=== PATIENT | male | born 1990 | race Caucasian/White ===

== ENCOUNTER 2016-06-01 16:39 | Emergency (ER) | payer SELFPAY ==
[2016-06-01 17:11] VITALS: BP 125/70
--- NOTE | 2016-06-01 17:48 | UC ---
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 pain is in deltoid and shoots back into scalpula pain is only elicited with movements not taking any medications for pain - History of Current Complaint Chief Complaint: UCUpperExtremity Stated Complaint: SHOULDER INJURY Time Seen by Provider: 06/01/16 17:42 Hx Obtained From: Patient Timing: Minutes Character: Aching Aggravating Factor(s): Lifting Alleviating Factor(s): Rest - Allergies/Home Medications Allergies/Adverse Reactions: Allergies Allergy/AdvReac Type Severity Reaction Status Date / Time No Known Allergies Allergy Verified 06/01/16 17:11 Home Medications: Home Medications NK [No Home Medications Reported] 06/01/16 [History Confirmed 06/01/16] PMH/Surg Hx/FS Hx/Imm Hx Previously Healthy: Yes Endocrine History Of: Denies: Diabetes, Thyroid Disease Cardiovascular History Of: Reports: Cardiac Disorders - HEART MURMUR Denies: Hypertension Respiratory History Of: Denies: COPD, Asthma GI/ History Of: Denies: Ulcer Psychological History Of: Reports: Anxiety - hx of cutting - Surgical History Surgical History: Yes Surgery Procedure, Year, and Place: right wrist - Family History Known Family History: Positive: Hypertension Negative: Cardiac Disease, Diabetes - Social History Occupation: Employed Full-time Lives: With Family Alcohol Use: Occasionally Substance Use Type: Marijuana Smoking Status (MU): Never Smoked Tobacco Have You Smoked in the Last Year: No Review of Systems Constitutional: Negative Skin: Negative Eyes: Negative ENT: Negative Respiratory: Negative Cardiovascular: Negative Gastrointestinal: Negative Genitourinary: Negative Motor: Negative Neurovascular: Negative Musculoskeletal: Other: - rioght shoulder pain Neurological: Negative Psychological: Negative All Other Systems Reviewed And Are Negative: Yes Physical Exam Triage Information Reviewed: Yes Appearance: No Pain Distress, Well-Nourished Vital Signs: Initial Vital Signs Temp 97.6 F 06/01/16 17:07 Pulse 50 06/01/16 17:07 Resp 12 06/01/16 17:07 BP 125/70 06/01/16 17:07 Pulse Ox 100 06/01/16 17:07 Vital Signs Reviewed: Yes Eyes: Positive: Conjunctiva Clear ENT: Positive: Normal ENT inspection Neck: Positive: No Lymphadenopathy Respiratory: Positive: Lungs clear, Normal breath sounds, No respiratory distress, No accessory muscle use Cardiovascular: Positive: RRR, No Murmur, Pulses Normal Musculoskeletal: Negative: Other: - RUE- shoulder full ROM of arm- pain elicitied in shoulder at 90 degrees no tenderness elicited from palpation of structures/musculature of shoulder negative for inpingment Neurological: Positive: Alert Psychological Exam: Normal Skin Exam: Normal Shoulder Course/Dx - Differential Dx/Diagnosis Differential Diagnosis/HQI/PQRI: Rotator Cuff Injury, Sprain, Strain Provider Diagnoses: right shoulder pain Discharge - Discharge Plan Condition: Stable Disposition: HOME Patient Education Materials: Rotator Cuff Injury (ED), Shoulder Sprain (ED), RICE Therapy (ED) Referrals: No Primary Care Phys,NOPCP [Primary Care Provider] - [facility] [place] [facility] [Outside] Additional Instructions: Please call physical therapy for further evaluation and treatment. Take ibuprofen for pain and to reduce inflammation rest your shoulder apply ice twice a day Increase fluids and rest. Please review your discharge instructions. If your symptoms do not improve please call your primary care provider or return to urgent care.
== END 2016-06-01 18:20 | disposition home or self-care (01) ==
LOC: UCEAST 16:39
DX: M25.511 Pain in right shoulder (principal); F12.90 Cannabis use, unspecified, uncomplicated
CPT/HCPCS: 99211; G0463

== ENCOUNTER 2016-08-04 07:08 | Emergency (ER) | payer SELFPAY ==
--- NOTE | 2016-08-04 08:03 | RAD ---
HISTORY: Ankle and foot pain, trauma to right ankle and foot COMPARISONS: Right ankle dated August 04, 2016 VIEWS: 3, Frontal, lateral, and oblique views of the right foot FINDINGS: BONE DENSITY: Normal. BONES: Again noted is a nondisplaced fracture of the medial tibia with articular extension JOINTS: There is no arthropathy. ALIGNMENT: There is no dislocation. SOFT TISSUES: Unremarkable. OTHER FINDINGS: None. IMPRESSION: AGAIN NOTED IS A NONDISPLACED FRACTURE OF THE MEDIAL DISTAL TIBIA
--- NOTE | 2016-08-04 08:03 | RAD ---
HISTORY: Right ankle pain, trauma COMPARISONS: None VIEWS: There is, Frontal, lateral, and oblique views of the right ankle FINDINGS: BONE DENSITY: Normal. BONES: There is a longitudinally oriented nondisplaced fracture of the medial distal tibial metaphysis with articular extension JOINTS: There is no arthropathy. ALIGNMENT: There is no dislocation. SOFT TISSUES: There is soft tissue swelling OTHER FINDINGS: None. IMPRESSION: LONGITUDINALLY ORIENTED NONDISPLACED FRACTURE OF THE MEDIAL DISTAL TIBIA WITH ARTICULAR EXTENSION
[2016-08-04] MEDS ORDERED: Ketorolac INJ* 60 MG/2 ML VIAL ONE (08:33)
[2016-08-04] MEDS ORDERED: Ketorolac INJ* 60 MG/2 ML VIAL IM ONE (08:34)
--- NOTE | 2016-08-04 08:44 | ED ---
ciarra Mcneill Timothy, scribed for Rosales Albrecht MD on 08/04/16 at 0732 . Lower Extremity - HPI Summary HPI Summary: Pete Valenzuela III is a 26 yo male presenting to [facility] with 10/10 pain in his right ankle secondary to falling down stairs while intoxicated at 2300 last night. His pain increases with palpation or any movement. His MH includes heart murmur, self-harm, anxiety, substance abuse. - History of Current Complaint Chief Complaint: EDExtremityLower Stated Complaint: RIGHT ANKLE INJURY Time Seen by Provider: 08/04/16 07:23 Hx Obtained From: Patient Mechanism Of Injury: Fall From A Standing Position - down stairs Onset of Pain: Immediate Onset/Duration: Hours Pain Intensity: 10 Pain Scale Used: 0-10 Numeric Location: Is Discrete @ - right ankle Associated Signs And Symptoms: Positive: Swelling, Bruising Aggravating Factor(s): Standing, Ambulation, Movement, Weight Bearing - Allergies/Home Medications Allergies/Adverse Reactions: Allergies Allergy/AdvReac Type Severity Reaction Status Date / Time No Known Allergies Allergy Verified 06/01/16 17:11 PMH/Surg Hx/FS Hx/Imm Hx Endocrine/Hematology History: Denies: Hx Diabetes, Hx Thyroid Disease Cardiovascular History: Denies: Hx Hypertension Respiratory History: Denies: Hx Asthma, Hx Chronic Obstructive Pulmonary Disease (COPD) GI History: Denies: Hx Ulcer Psychiatric History: Reports: Hx Anxiety - hx of cutting, Hx Substance Abuse - Cancer History Cancer Type, Location and Year: anxiety - Surgical History Surgery Procedure, Year, and Place: right wrist Infectious Disease History: No Infectious Disease History: Denies: Hx Clostridium Difficile, Hx Hepatitis, Hx Human Immunodeficiency Virus (HIV), Hx of Known/Suspected MRSA, Hx Shingles, Hx Tuberculosis, Hx Known/ Suspected VRE, Hx Known/Suspected VRSA, History Other Infectious Disease, Traveled Outside the [place] in Last 30 Days - Family History Known Family History: Positive: Hypertension Negative: Cardiac Disease, Diabetes - Social History Alcohol Use: Occasionally Hx Substance Use: Yes Substance Use Type: Reports: Marijuana Smoking Status (MU): Never Smoked Tobacco Have You Smoked in the Last Year: No Review of Systems Constitutional: Negative Eyes: Negative ENT: Negative Cardiovascular: Negative Respiratory: Negative Gastrointestinal: Negative Genitourinary: Negative Musculoskeletal: Other - right ankle pain Positive: Bruising - right ankle Neurological: Negative Psychological: Normal All Other Systems Reviewed And Are Negative: Yes Physical Exam - Summary Physical Exam Summary: VITAL SIGNS: Reviewed. GENERAL: Patient is a well-developed and nourished male who is lying comfortable in the stretcher. Patient is not in any acute respiratory distress. HEAD AND FACE: No signs of trauma. No ecchymosis, hematomas or skull depressions. No sinus tenderness. EYES: PERRLA, EOMI x 2, No injected conjunctiva, no nystagmus. EARS: Hearing grossly intact. Ear canals and tympanic membranes are within normal limits. MOUTH: Oropharynx within normal limits. NECK: Supple, trachea is midline, no adenopathy, no JVD, no carotid bruit, no c- spine tenderness, neck with full ROM. CHEST: Symmetric, no tenderness at palpation LUNGS: Clear to auscultation bilaterally. No wheezing or crackles. CVS: Regular rate and rhythm, S1 and S2 present, no murmurs or gallops appreciated. ABDOMEN: Soft, non-tender. No signs of distention. No rebound no guarding, and no masses palpated. Bowel sounds are normal. EXTREMITIES: FROM in all major joints, no cyanosis or clubbing. In right ankle there is positive edema and ecchymosis with tenderness at the lateral malleolus NEURO: Alert and oriented x 3. No acute neurological deficits. Speech is normal and follows commands. SKIN: Dry and warm Triage Information Reviewed: Yes Vital Signs On Initial Exam: Initial Vitals Temp Pulse Resp BP Pulse Ox 99.2 F 88 16 151/70 97 08/04/16 07:09 08/04/16 07:09 08/04/16 07:09 08/04/16 07:09 08/04/16 07:09 Vital Signs Reviewed: Yes Procedures - Procedure Summary Procedure Summary: Cast was created and applied to RLE. Pt tolerated procedure well. - Splinting Location: RLE - ankle Hand-Made Type: fiberglass Splint: posterior Pre-Proc Neuro Vasc Exam: normal Post-Proc Neuro Vasc Exam: normal Diagnostics - Vital Signs Vital Signs Temp Pulse Resp BP Pulse Ox 08/04/16 07:09 99.2 F 88 16 151/70 97 - Laboratory Lab Statement: Any lab studies that have been ordered have been reviewed, and results considered in the medical decision making process. - Radiology R Ankle XR Xray Interpretation: Positive (See Comments) - IMPRESSION: LONGITUDINALLY ORIENTED NONDISPLACED FRACTURE OF THE MEDIAL DISTAL TIBIA WITH ARTICULAR EXTENSION Radiology Interpretation Completed By: Radiologist R Foot XR Xray Interpretation: Positive (See Comments) - IMPRESSION: AGAIN NOTED IS A NONDISPLACED FRACTURE OF THE MEDIAL DISTAL TIBIA Radiology Interpretation Completed By: Radiologist Re-Evaluation - Re-Evaluation First Eval Re-Evaluation Time: 08:19 Change: Unchanged Comment: Discussed imaging results with Pt and necessity of a cast. Pt is agreeable to the course of Tx. Lower Extremity Course/Dx - Course Assessment/Plan: Pete Valenzuela III is a 26 yo male presenting to [facility] with 10 /10 R ankle pain after falling down the stairs at 2300 last night while intoxicated. Ankle X ray impression: Nondisplaced fracture of the medial distal tibia. Foot x ray impression: Longitudinal Nondisplaced fracture of the medial distal tibia with articular extension. In the ED course he was given Toradol for the pain. Reports feeling better. I place a posterior fibreglass splint. After splint patient is neurovascularly intact. He will be given Crutches for a non weight bearing status. He will f/u with orthopedics. I discussed all the findings and test results with the patient. Patient was instructed to return to the emergency room immediately if any of the symptoms return or worsens. Plan of care was discussed with the patient and understands and agrees. All questions were answered at patient satisfaction. There were no further complaints or concerns. Lung exam before discharge: CTA B/L. Good air exchange. No wheezing or crackles heard. CVS: S1 and S2 present. No murmurs appreciated. Patient is alert and oriented x 3. Patient is hemodynamically stable. Patient will be discharged home with follow up PCP in the next 2-3 days - Diagnoses Differential Diagnosis/HQI/PQRI: Positive: Fracture (Closed), Sprain, Strain Provider Diagnoses: Nondisplaced fracture of right tibia Discharge - Discharge Plan Condition: Stable Disposition: HOME Patient Education Materials: Leg Fracture (ED), Cast Care (ED) Referrals: [facility] [place] [facility] [Outside] - 2 Days Emily Faulkner MD [Medical Doctor] - 2 Days Additional Instructions: Please follow up with the primary care physician and the orthopedist provided regarding your visit to the emergency department today. Return to the emergency department with any new or recurring symptoms. The documentation as recorded by the ciarra armendariz Timothy accurately reflects the service I personally performed and the decisions made by me, Rosales Albrecht MD.
[2016-08-04 08:55] VITALS: BP 131/80
== END 2016-08-04 08:54 | disposition home or self-care (01) ==
LOC: ED 07:08
DX: S82.201A Unspecified fracture of shaft of right tibia, initial encounter for closed fracture (principal); W10.9XXA Fall (on) (from) unspecified stairs and steps, initial encounter; Y92.9 Unspecified place or not applicable
CPT/HCPCS: 99282; J1885

== ENCOUNTER 2016-10-22 19:22 | Emergency (ER) | payer OTHER ==
[2016-10-22 19:33] VITALS: BP 130/72
[2016-10-22] MEDS ORDERED: Amoxicillin/Clavulanate TAB* 875 MG PO ONE ×2 (19:56→19:57)
--- NOTE | 2016-10-22 20:08 | UC ---
Lauryn Mcneill Alfonso, scribed for Nirmal Proctor MD on 10/22/16 at 1952 . Dental HPI - HPI Summary HPI Summary: This patient is a 26 year old M presenting to [facility] with a chief complaint of lower right gum swelling since 3 days ago. He states it is swollen and it feels like something is in there. The patient rates the throbbing pain 10/10 in severity. Symptoms aggravated and alleviated by nothing. Patient denies fever , ear pain, face swelling, and neck swelling. He recently broke his tibia and has crutches. - History of Current Complaint Chief Complaint: UCDentalProblem Stated Complaint: DENTAL (GUM) ISSUE Time Seen by Provider: 10/22/16 19:43 Hx Obtained From: Patient Onset/Duration: Sudden Onset, Lasting Days - 3, Still Present Severity: Moderate Pain Intensity: 10 Pain Scale Used: 0-10 Numeric Aggravating: Nothing Alleviating: Nothing Related History: Swelling - Allergies/Home Medications Allergies/Adverse Reactions: Allergies Allergy/AdvReac Type Severity Reaction Status Date / Time No Known Allergies Allergy Verified 06/01/16 17:11 PMH/Surg Hx/FS Hx/Imm Hx Other Respiratory History: No Asthma. - Surgical History Surgical History: Yes Surgery Procedure, Year, and Place: right wrist - Family History Known Family History: Positive: Hypertension Negative: Cardiac Disease, Diabetes - Social History Alcohol Use: None Substance Use Type: None Smoking Status (MU): Never Smoked Tobacco Have You Smoked in the Last Year: No Review of Systems Constitutional: Other - Negative fever ENT: Other - Positive right gum swelling; negative ear pain, face swelling, and neck swelling. All Other Systems Reviewed And Are Negative: Yes Physical Exam Triage Information Reviewed: Yes Vital Signs: Initial Vital Signs Temp 98.4 F 10/22/16 19:30 Pulse 69 10/22/16 19:30 Resp 18 10/22/16 19:30 BP 130/72 10/22/16 19:30 Pulse Ox 100 10/22/16 19:30 Vital Signs Reviewed: Yes - Additional Comments The patient is well-nourished in no acute distress and in no acute pain. The skin is warm and dry and skin color reflects adequate perfusion. HEENT: The head is normocephalic and atraumatic. The pupils are equal and reactive. The conjunctivae are clear and without drainage. Nares are patent and without drainage. Mouth reveals moist mucous membranes and the throat is without erythema and exudate. The external ears are intact. The ear canals are patent and without drainage. The tympanic membranes are intact. Dental : Tender to percussion of the gum line. Behind tooth 32 is excess gum tissue. Area of erythematous gums looking like gingivitis. Neck is supple with full range of motion and non-tender. There are no carotid bruits. There is no neck vein distension. Respiratory: Chest is non-tender. Lungs are clear to auscultation and breath sounds are symmetrical and equal. Cardiovascular: Heart is regular rate and rhythm. There is no murmur or rub auscultated. There is no peripheral edema and pulses are symmetrical and equal. Abdomen: The abdomen is soft and non-tender. There are normal bowel sounds heard in all four quadrants and there is no organomegaly palpated. Musculoskeletal: There is no back pain noted. Extremities are non-tender with full range of motion. There is good capillary refill. There is no peripheral edema or calf tenderness elicited. Neurological: Patient is alert and oriented to person, place and time. The patient has symmetrical motor strength in all four extremities. Cranial nerves are grossly intact. Psychiatric: The patient has an appropriate affect and does not exhibit any anxiety or depression. Dental Complaint Course/Dx - Course Course Of Treatment: This patient is a 26 year old M presenting to [facility] with a chief complaint of lower right gum swelling since 3 days ago. He states it is swollen and it feels like something is in there. The patient rates the throbbing pain 10/10 in severity. Symptoms aggravated and alleviated by nothing. Patient denies fever, ear pain, face swelling, and neck swelling. He recently broke his tibia and has crutches. Patient will be discharged with prescription for Augmentin and follow up from PCP and dentist. The patient is agreeable with this plan. - Differential Dx/Diagnosis Differential Diagnosis/Dx: Dental Abscess, Gingivitis Provider Diagnoses: Gingivitis Discharge - Discharge Plan Condition: Stable Disposition: HOME Prescriptions: Amoxicillin/Clavulanate TAB* [Augmentin TAB 875*] 875 mg PO BID #12 tab Patient Education Materials: Gingivitis (ED) Referrals: Fadi Blair MD [Primary Care Provider] - 3 Days Additional Instructions: FOLLOW UP WITH A DENTIST IF YOUR SYMPTOMS DO NOT IMPROVE OR BECOME WORSE. The documentation as recorded by the Lauryn armendariz Alfonso accurately reflects the service I personally performed and the decisions made by me, Nirmal Proctor MD.
== END 2016-10-22 20:17 | disposition home or self-care (01) ==
LOC: UCEAST 19:22
DX: K05.10 Chronic gingivitis, plaque induced (principal)
CPT/HCPCS: 99212; A9270-GY; G0463

== ENCOUNTER 2016-10-23 02:12 | Emergency (ER) | payer OTHER ==
--- NOTE | 2016-10-23 02:59 | ED ---
IHéctor,nAne, scribed for Pito Johnson MD on 10/23/16 at 0259 . Lower Extremity - HPI Summary HPI Summary: This 26 y/o male presents to ED for recurrent RLE leg pain tonight. PMHx is significant for RLE fracture s/p cast 6-7 days ago. He fell from standing position while ambulating with crutches, and decided to visit ED again when he became concerned about possible re-fracture of his RLE leg. He is able to tolerate ambulation with crutches, and seen ambulating to ED room. Other PMHx includes heart murmur. Pt is currently employed at [employer]. - History of Current Complaint Chief Complaint: EDExtremityLower Stated Complaint: FELL ON BROKEN RT LEG Time Seen by Provider: 10/23/16 02:29 Hx Obtained From: Patient Mechanism Of Injury: Fall From A Standing Position Onset of Pain: Immediate Pain Intensity: 5 Pain Scale Used: 0-10 Numeric Location: Is Discrete @ - RLE leg Character Of Pain: Dull Associated Signs And Symptoms: Positive: Negative Aggravating Factor(s): Standing, Ambulation Alleviating Factor(s): Rest - Allergies/Home Medications Allergies/Adverse Reactions: Allergies Allergy/AdvReac Type Severity Reaction Status Date / Time No Known Allergies Allergy Verified 10/23/16 02:14 PMH/Surg Hx/FS Hx/Imm Hx Endocrine/Hematology History: Denies: Hx Diabetes, Hx Thyroid Disease Cardiovascular History: Denies: Hx Hypertension Respiratory History: Denies: Hx Asthma, Hx Chronic Obstructive Pulmonary Disease (COPD) GI History: Denies: Hx Ulcer Psychiatric History: Reports: Hx Anxiety - hx of cutting, Hx Substance Abuse - Cancer History Cancer Type, Location and Year: anxiety - Surgical History Surgery Procedure, Year, and Place: right wrist Infectious Disease History: No Infectious Disease History: Denies: Hx Clostridium Difficile, Hx Hepatitis, Hx Human Immunodeficiency Virus (HIV), Hx of Known/Suspected MRSA, Hx Shingles, Hx Tuberculosis, Hx Known/ Suspected VRE, Hx Known/Suspected VRSA, History Other Infectious Disease, Traveled Outside the [place] in Last 30 Days - Family History Known Family History: Positive: Hypertension Negative: Cardiac Disease, Diabetes - Social History Alcohol Use: Weekly Hx Substance Use: Yes Substance Use Type: Reports: None Smoking Status (MU): Never Smoked Tobacco Have You Smoked in the Last Year: No Review of Systems Negative: Fever Positive: Other - RLE pain, currently casted All Other Systems Reviewed And Are Negative: Yes Physical Exam Triage Information Reviewed: Yes Vital Signs On Initial Exam: Initial Vitals Temp Pulse Resp BP Pulse Ox 98.2 F 107 18 134/82 95 10/23/16 02:16 10/23/16 02:16 10/23/16 02:16 10/23/16 02:16 10/23/16 02:16 Vital Signs Reviewed: Yes Appearance: Positive: Well-Appearing, No Pain Distress Skin: Positive: Warm Head/Face: Positive: Normal Head/Face Inspection Eyes: Positive: KASIA ENT: Positive: Hearing grossly normal Neck: Positive: Supple Respiratory/Lung Sounds: Positive: Breath Sounds Present Cardiovascular: Positive: RRR Abdomen Description: Positive: Nontender, Soft Bowel Sounds: Positive: Present Musculoskeletal: Positive: Strength/ROM Intact Neurological: Positive: Alert, Oriented to Person Place, Time Psychiatric: Positive: Affect/Mood Appropriate Diagnostics - Vital Signs Vital Signs Temp Pulse Resp BP Pulse Ox 10/23/16 02:16 98.2 F 107 18 134/82 95 - Laboratory Lab Statement: Any lab studies that have been ordered have been reviewed, and results considered in the medical decision making process. - Radiology RLE leg Xray Interpretation: No Acute Changes Radiology Interpretation Completed By: ED Physician Re-Evaluation - Re-Evaluation First Eval Change: Improved Lower Extremity Course/Dx - Diagnoses Provider Diagnoses: Right leg pain Discharge - Discharge Plan Condition: Stable Disposition: HOME Prescriptions: Naproxen [Naprosyn 500 mg] 500 mg PO BID #20 tab Patient Education Materials: Naproxen (By mouth), Leg Pain (ED) Referrals: Fadi Blair MD [Primary Care Provider] - 2 Days The documentation as recorded by the Héctor armendariz Soohyun accurately reflects the service I personally performed and the decisions made by me, Pito Johnson MD.
[2016-10-23 03:04] VITALS: BP 128/89
--- NOTE | 2016-10-23 10:40 | RAD ---
Indication: Right lower extremity pain. 2 views of the right lower extremity demonstrates no fracture. No other bone or joint abnormality is noted. IMPRESSION: No fracture of the right lower extremity is noted.
== END 2016-10-23 03:04 | disposition home or self-care (01) ==
LOC: ED 02:12
DX: M79.604 Pain in right leg (principal); Z86.79 Personal history of other diseases of the circulatory system
CPT/HCPCS: 99282

== ENCOUNTER 2017-02-21 11:35 | Emergency (ER) | payer OTHER ==
[2017-02-21 11:46] VITALS: BP 122/71
--- NOTE | 2017-02-21 12:00 | UC ---
Skin Complaint HPI - HPI Summary HPI Summary: Patient patients with right great toe pain. He tells me that about 10 days ago he developed right great toe pain which progressed to swelling, redness, and mild purulent discharge. Today he is still having swelling, redness, and drainage from the lateral aspect of the toe. He does have an ingrown toenail on this same toe. He denies injury, numbness, tingling, fever, or chills. - History of Current Complaint Chief Complaint: UCLowerExtremity Time Seen by Provider: 02/21/17 12:00 Stated Complaint: INGROWN TOENAIL Hx Obtained From: Patient Onset/Duration: Gradual Onset Pain Intensity: 3 Pain Scale Used: 0-10 Numeric - Allergy/Home Medications Allergies/Adverse Reactions: Allergies Allergy/AdvReac Type Severity Reaction Status Date / Time No Known Allergies Allergy Verified 02/21/17 11:46 Review of Systems Constitutional: Negative Skin: Other - Pain, redness, swelling right great toe Respiratory: Negative Cardiovascular: Negative Neurovascular: Negative Musculoskeletal: Negative Neurological: Negative All Other Systems Reviewed And Are Negative: Yes PMH/Surg Hx/FS Hx/Imm Hx Previously Healthy: Yes - Surgical History Surgical History: Yes Surgery Procedure, Year, and Place: right wrist - Family History Known Family History: Positive: Hypertension Negative: Cardiac Disease, Diabetes - Social History Occupation: Employed Full-time Lives: With Family Alcohol Use: None Substance Use Type: None Smoking Status (MU): Never Smoked Tobacco Have You Smoked in the Last Year: No Household Exposure Type: Cigarettes - Immunization History Most Recent Influenza Vaccination: NOT UTD Most Recent Tetanus Shot: NOT UTD. Physical Exam Triage Information Reviewed: Yes Appearance: Well-Appearing, Well-Nourished Vital Signs: Initial Vital Signs Temp 97.7 F 02/21/17 11:39 Pulse 67 02/21/17 11:39 Resp 16 02/21/17 11:39 BP 122/71 02/21/17 11:39 Pulse Ox 100 02/21/17 11:39 Vital Signs Reviewed: Yes Neck: Positive: Supple, Nontender, No Lymphadenopathy Musculoskeletal: Positive: Strength Intact - Right great toe, ROM Intact - Right great toe, Edema @ - Right great toe - mild Psychological: Positive: Age Appropriate Behavior Skin: Positive: Other - Right great toe: there is mild erythema and edema on the medial aspect. There is mild purulent drainage able to be expressed, but with significant pain. No streaking or open wounds. Course/Dx - Course Course Of Treatment: A time out was performed, witnessed, and signed. The area was cleansed with alcohol. 2mL of 2% lidocaine without epi was administered and good anesthetization was achieved. A #11 blade scalpel was used to make a <1mm incision at the base of the medial right great toe nail. The area was massaged and more purulent discharge was able to be expressed. Pt tolerated procedure well. Will start him on Keflex for 7 days for paronychia and mild cellulitis - Differential Diagnoses - Skin Complaint Differential Diagnoses: Cellulitis - Diagnoses Provider Diagnoses: Paronychia right great toe Discharge - Discharge Plan Condition: Stable Disposition: HOME Prescriptions: Cephalexin CAP* [Keflex CAP*] 500 mg PO BID #14 cap Patient Education Materials: Paronychia (ED) Forms: *Work Release Referrals: Fadi Blair MD [Primary Care Provider] - Additional Instructions: If you develop a fever, SOB, chest pain, new or worsening symptoms - please call your PCP or go to the ED.
[2017-02-21] MEDS ORDERED: Lidocaine 2% PF * 5 ML VIAL INJ ONE (12:05)
== END 2017-02-21 12:35 | disposition home or self-care (01) ==
LOC: UCEAST 11:35
DX: L03.031 Cellulitis of right toe (principal)
CPT/HCPCS: 10060; 99212; G0463

== ENCOUNTER 2017-05-13 14:20 | Emergency (ER) | payer OTHER ==
[2017-05-13 14:53] VITALS: BP 118/80
--- NOTE | 2017-05-13 15:20 | UC ---
Headache HPI - History Of Current Complaint Chief Complaint: tSeve Stated Complaint: HEADACHE, AND LUMP ON NECK Time Seen by Provider: 05/13/17 15:18 Hx Obtained From: Patient Onset/Duration: Sudden Onset - awoke yesterday with headache and felt lump on L posterior neck. no headache today but lump is still there Pain Intensity: 0 Character: Typical Headache - resolved within hours - Allergies/Home Medications Allergies/Adverse Reactions: Allergies Allergy/AdvReac Type Severity Reaction Status Date / Time No Known Allergies Allergy Verified 05/13/17 14:53 Home Medications: Home Medications NK [No Home Medications Reported] 05/13/17 [History Confirmed 05/13/17] PMH/Surg Hx/FS Hx/Imm Hx Previously Healthy: Yes - Surgical History Surgical History: Yes Surgery Procedure, Year, and Place: right wrist - Family History Known Family History: Positive: Hypertension Negative: Cardiac Disease, Diabetes - Social History Occupation: Employed Full-time Lives: With Family Alcohol Use: Occasionally Substance Use Type: None Smoking Status (MU): Never Smoked Tobacco Have You Smoked in the Last Year: No Household Exposure Type: Cigarettes - Immunization History Most Recent Influenza Vaccination: NOT UTD Most Recent Tetanus Shot: NOT UTD. Review of Systems Constitutional: Negative Skin: Other - acne ENT: Negative Respiratory: Negative Cardiovascular: Negative Musculoskeletal: Negative Neurological: Negative Psychological: Negative Is Patient Immunocompromised?: No All Other Systems Reviewed And Are Negative: Yes Physical Exam Triage Information Reviewed: Yes Appearance: Well-Appearing, No Pain Distress, Well-Nourished Vital Signs: Initial Vital Signs Temp 99.1 F 05/13/17 14:50 Pulse 54 05/13/17 14:50 Resp 12 05/13/17 14:50 BP 118/80 05/13/17 14:50 Pulse Ox 100 05/13/17 14:50 Vital Signs Reviewed: Yes Eye Exam: Normal Eyes: Positive: Conjunctiva Clear ENT Exam: Normal Neck: Positive: Supple, Other: - one small (6mm) round, firm tender mass L posterior neck in hairline. pt does have some acne lesions in area which he explains are "normal for him" Respiratory Exam: Normal Respiratory: Positive: Lungs clear Cardiovascular Exam: Normal Cardiovascular: Positive: RRR Musculoskeletal Exam: Normal Neurological Exam: Normal Neurological: Positive: Alert Psychological Exam: Normal Skin: Positive: Other - no erythemic vesicals, few acne lesions face and neck Headache Course/Dx - Differential Dx/Diagnosis Differential Diagnosis/HQI/PQRI: Tension Headache, Other - shingles, abscess, LAD Provider Diagnoses: small skin nodule posterior neck Discharge - Discharge Plan Condition: Good Disposition: HOME Patient Education Materials: Lymphadenopathy (ED) Forms: *Work Release Referrals: Fadi Blair MD [Primary Care Provider] - 1 Week (if no better) Additional Instructions: monitor area and return if symptoms change or worsen at any time
== END 2017-05-13 15:51 | disposition home or self-care (01) ==
LOC: UCEAST 14:20
DX: R22.1 Localized swelling, mass and lump, neck (principal); R51 Headache
CPT/HCPCS: 99211; G0463

== ENCOUNTER 2017-05-23 15:39 | Emergency (ER) | payer OTHER ==
--- NOTE | 2017-05-23 15:50 | UC ---
Lower Extremity/Ankle HPI - HPI Summary HPI Summary: Pt presents with right ankle pain. He tells me that about 10 months ago he jumped from a height and sustained an impacted fracture of his right tibia. He saw Orthopedics for this and healed well. Has had no issues until about 1 week ago. Started having right lateral malleolus pain that was at it's worst today - his work sent him to be seen. Denies numbness or tingling. He is able to ambulate without a limp and without assistance. - History of Current Complaint Stated Complaint: LEG PAIN FROM INJURIES Time Seen by Provider: 05/23/17 15:49 Hx Obtained From: Patient Onset/Duration: Gradual Onset Severity Initially: Moderate Severity Currently: Moderate Pain Intensity: 6 Pain Scale Used: 0-10 Numeric Aggravating Factor(s): Standing Alleviating Factor(s): Rest Able to Bear Weight: Yes - Allergies/Home Medications Allergies/Adverse Reactions: Allergies Allergy/AdvReac Type Severity Reaction Status Date / Time No Known Allergies Allergy Verified 05/23/17 15:51 PMH/Surg Hx/FS Hx/Imm Hx Previously Healthy: Yes - Surgical History Surgical History: Yes Surgery Procedure, Year, and Place: right wrist - Family History Known Family History: Positive: Hypertension Negative: Cardiac Disease, Diabetes - Social History Occupation: Employed Full-time Lives: With Family Alcohol Use: Occasionally Substance Use Type: None Smoking Status (MU): Never Smoked Tobacco Have You Smoked in the Last Year: No Household Exposure Type: Cigarettes - Immunization History Most Recent Influenza Vaccination: NOT UTD Most Recent Tetanus Shot: NOT UTD. Review of Systems Constitutional: Negative Skin: Negative Respiratory: Negative Cardiovascular: Negative Neurovascular: Negative Musculoskeletal: Other: - Pain right ankle Neurological: Negative Psychological: Negative All Other Systems Reviewed And Are Negative: Yes Physical Exam - Summary Physical Exam Summary: GENERAL: NAD. WDWN. No pain distress. SKIN: No rashes, sores, ulcers, masses, lesions. NECK: Supple. Nontender. No lymphadenopathy. CHEST: CTAB. No r/r/w. No accessory muscle use. Breathing comfortably and in no distress. CV: RRR. Without m/r/g. Pulses intact PT and DP. Brisk cap refill. MSK: Mild TTP right lateral malleolus. FROM. Strength 5/5. No edema or obvious bony deformities. Negative talar tilt. No increased laxity. Negative [place] test. NEURO: Alert. Sensations intact and symmetric B/L LEs PSYCH: Age appropriate behavior. Triage Information Reviewed: Yes Lower Extremity Course/Dx - Course Course Of Treatment: XR: IMPRESSION: No fracture of the right foot is noted. IMPRESSION: No fracture of the right ankle is noted. Prior tibial fracture appears to be. healed. Declined crutches. Advised to take ibuprofen and f/u with Dr. Blair whom he saw for his previous fx. - Differential Dx/Diagnosis Provider Diagnoses: Right ankle pain Discharge - Discharge Plan Condition: Stable Disposition: HOME Forms: *Work Release Referrals: Fadi Blair MD [Primary Care Provider] - If Needed Additional Instructions: If you develop a fever, shortness of breath, chest pain, new or worsening symptoms - please call your PCP or go to the ED. 1) Please schedule a follow up appointment with Dr. Blair for further evaluation of your right ankle pain.
[2017-05-23 15:51] VITALS: BP 127/82
--- NOTE | 2017-05-23 16:17 | RAD ---
Indication: History of tibia and fibular fracture. 3 views of the right ankle demonstrates ankle mortise to be intact. No fracture is identified. Calcaneus is unremarkable. When compared to previous exam of November 10, 2016 previously identified tibial fracture is no longer present. IMPRESSION: No fracture of the right ankle is noted. Prior tibial fracture appears to be healed.
--- NOTE | 2017-05-23 16:21 | RAD ---
Indication: Right foot pain. 3 views of the right foot demonstrates no fracture. No other bone or joint abnormality is noted. IMPRESSION: No fracture of the right foot is noted.
== END 2017-05-23 16:40 | disposition home or self-care (01) ==
LOC: UCEAST 15:39
DX: M25.571 Pain in right ankle and joints of right foot (principal)
CPT/HCPCS: 99211; G0463

== ENCOUNTER 2017-10-09 19:05 | Emergency (ER) | payer OTHER ==
[2017-10-09] MEDS ORDERED: Tetan/Diph/Pertus SYR(Tdap)* 0.5 ML SYR(BOOSTRIX) use SYR IM ONE (19:56)
[2017-10-09] MEDS ORDERED: Cephalexin CAP* 500 MG PO ONE (20:36)
--- NOTE | 2017-10-09 20:38 | ED ---
Upper Extremity Pain - HPI Summary HPI Summary: Complains of fishhook in finger tip pad of right third digit today. Denies loss of sensation or function. No anti-coag. Medical history is none. - History of Current Complaint Chief Complaint: EDExtremityUpper Stated Complaint: RT FINGER-HOOK IN MIDDLE FINGER Time Seen by Provider: 10/09/17 19:37 Hx Obtained From: Patient Severity Initially: Moderate Severity Currently: Moderate Pain Location: Finger Character: Sharp, Aching, Throbbing Aggravating Factor(s): Movement - Allergies/Home Medications Allergies/Adverse Reactions: Allergies Allergy/AdvReac Type Severity Reaction Status Date / Time No Known Allergies Allergy Verified 05/23/17 15:51 PMH/Surg Hx/FS Hx/Imm Hx Endocrine/Hematology History: Denies: Hx Anticoagulant Therapy, Hx Diabetes, Hx Thyroid Disease Cardiovascular History: Denies: Hx Hypertension Respiratory History: Denies: Hx Asthma, Hx Chronic Obstructive Pulmonary Disease (COPD) GI History: Denies: Hx Ulcer History: Denies: Hx Dialysis Neurological History: Denies: Hx CVA Psychiatric History: Reports: Hx Anxiety - hx of cutting, Hx Substance Abuse - Cancer History Cancer Type, Location and Year: anxiety - Surgical History Surgery Procedure, Year, and Place: right wrist - Immunization History Date of Tetanus Vaccine: 10/09/17 Infectious Disease History: No Infectious Disease History: Denies: Hx Clostridium Difficile, Hx Hepatitis, Hx Human Immunodeficiency Virus (HIV), Hx of Known/Suspected MRSA, Hx Shingles, Hx Tuberculosis, Hx Known/ Suspected VRE, Hx Known/Suspected VRSA, History Other Infectious Disease, Traveled Outside the [place] in Last 30 Days - Family History Known Family History: Positive: Hypertension Negative: Cardiac Disease, Diabetes - Social History Alcohol Use: Occasionally Hx Substance Use: Yes Substance Use Type: Reports: None Smoking Status (MU): Never Smoked Tobacco Have You Smoked in the Last Year: No Review of Systems Constitutional: Negative Eyes: Negative ENT: Negative Cardiovascular: Negative Respiratory: Negative Gastrointestinal: Negative Genitourinary: Negative Musculoskeletal: Negative Skin: Other Neurological: Negative Psychological: Normal All Other Systems Reviewed And Are Negative: Yes Physical Exam - Summary Physical Exam Summary: Road Runner from trouble hook lodged in superficial fingertip pad of the right third digit. PMS intact distally Triage Information Reviewed: Yes Vital Signs On Initial Exam: Initial Vitals Temp Pulse Resp BP Pulse Ox 99.2 F 53 18 139/76 100 10/09/17 19:14 10/09/17 19:14 10/09/17 19:14 10/09/17 19:14 10/09/17 19:14 Vital Signs Reviewed: Yes Appearance: Positive: Well-Appearing Skin: Positive: Warm Head/Face: Positive: Normal Head/Face Inspection Eyes: Positive: Normal Neck: Positive: Supple Respiratory/Lung Sounds: Positive: Clear to Auscultation Cardiovascular: Positive: Normal Abdomen Description: Positive: Nontender Musculoskeletal: Positive: Normal Neurological: Positive: Normal Psychiatric: Positive: Normal AVPU Assessment: Alert - [place] Coma Scale Best Eye Response: 4 - Spontaneous Best Motor Response: 6 - Obeys Commands Best Verbal Response: 5 - Oriented Coma Scale Total: 15 Diagnostics - Vital Signs Vital Signs Temp Pulse Resp BP Pulse Ox 10/09/17 19:14 99.2 F 53 18 139/76 100 - Laboratory Lab Statement: Any lab studies that have been ordered have been reviewed, and results considered in the medical decision making process. Course/Dx - Course Course Of Treatment: Complains of fishhook in finger tip pad of right third digit today. Denies loss of sensation or function. No anti-coag. Medical history is none. Road Runner from trouble hook lodged in superficial fingertip pad of the right third digit. PMS intact distally. Booster shot given. Road Runner removed successfully. Patient started on Keflex here in the ED. Rx for same. Ibuprofen for pain. - Diagnoses Provider Diagnoses: Fish hook injury of finger Discharge - Sign-Out/Discharge Documenting (check all that apply): Patient Departure - Discharge Plan Condition: Stable Disposition: HOME Prescriptions: Cephalexin CAP* [Keflex CAP*] 500 mg PO TID 7 Days #21 cap Patient Education Materials: Soft Tissue Foreign Body (ED) Referrals: Fadi Blair MD [Primary Care Provider] - Additional Instructions: Take antibiotics as directed. May wash wound with warm running water and soap. Keep protected when not washing. Do not submerge underwater as in swimming for 4 days. Return to the ED for any new or worsening symptoms - Billing Disposition and Condition Condition: STABLE Disposition: Home
[2017-10-09 21:03] VITALS: BP 124/65
== END 2017-10-09 21:02 | disposition home or self-care (01) ==
LOC: ED 19:05
DX: S61.242A Puncture wound with foreign body of right middle finger without damage to nail, initial encounter (principal); W26.9XXA Contact with unspecified sharp object(s), initial encounter; Y93.89 Activity, other specified; Y92.9 Unspecified place or not applicable
CPT/HCPCS: 90471; 90715; 99282; A9270-GY

== ENCOUNTER 2017-11-07 18:15 | Emergency (ER) | payer OTHER ==
--- NOTE | 2017-11-07 18:16 | UC ---
Cardiac HPI - History of Current Complaint Stated Complaint: CHEST PAIN Time Seen by Provider: 11/07/17 18:16 - Allergy/Home Medications Allergies/Adverse Reactions: Allergies Allergy/AdvReac Type Severity Reaction Status Date / Time No Known Allergies Allergy Verified 05/23/17 15:51 PMH/Surg Hx/FS Hx/Imm Hx Other History Of: Negative For: Anticoagulant Therapy - Surgical History Surgical History: Yes Surgery Procedure, Year, and Place: right wrist - Family History Known Family History: Positive: Hypertension Negative: Cardiac Disease, Diabetes - Social History Alcohol Use: Occasionally Substance Use Type: None Smoking Status (MU): Never Smoked Tobacco Have You Smoked in the Last Year: No Household Exposure Type: Cigarettes - Immunization History Most Recent Influenza Vaccination: NOT UTD Most Recent Tetanus Shot: NOT UTD. Discharge - Discharge Plan Referrals: Fadi Blair MD [Primary Care Provider] -
--- NOTE | 2017-11-07 18:18 | UC ---
Cardiac HPI - HPI Summary HPI Summary: 27 yo male presents with intermittent left sided chest pain over the last 3 weeks. He tells me that at work he does a lot of heavy and overhead lifting. He also fishes frequently and works out at home - denies specific injury, but over the last 3 weeks has felt "pulls" and "aches" in his left anterior chest. Thinks it may be a muscle. Says that he can reproduce his pain if he "pushes on it hard enough". He has not taken anything OTC for this discomfort. Pain does not change with meals. Denies fever, chills, SOB, MAL[place], palpitations, cough, abdominal pain, n/v/d/c. No cardiac fam hx except HTN. - History of Current Complaint Stated Complaint: CHEST PAIN Time Seen by Provider: 11/07/17 18:16 Hx Obtained From: Patient Onset/Duration: Gradual Onset Timing: Intermittent Episodes Lasting: - minutes Initial Severity: Mild Current Severity: Mild Pain Intensity: 2 Chest Pain Location: Left Anterior Character: Sharp/Stabbing - Allergy/Home Medications Allergies/Adverse Reactions: Allergies Allergy/AdvReac Type Severity Reaction Status Date / Time No Known Allergies Allergy Verified 05/23/17 15:51 PMH/Surg Hx/FS Hx/Imm Hx - Additional Past Medical History Additional PMH: None Other History Of: Negative For: Anticoagulant Therapy - Surgical History Surgical History: Yes Surgery Procedure, Year, and Place: right wrist - Family History Known Family History: Positive: Hypertension Negative: Cardiac Disease, Diabetes - Social History Occupation: Employed Full-time Lives: With Family Alcohol Use: Occasionally Substance Use Type: None Smoking Status (MU): Never Smoked Tobacco Have You Smoked in the Last Year: No Household Exposure Type: Cigarettes - Immunization History Most Recent Influenza Vaccination: NOT UTD Most Recent Tetanus Shot: NOT UTD. Review of Systems Constitutional: Negative Skin: Negative Respiratory: Negative Cardiovascular: Chest Pain Gastrointestinal: Negative Neurovascular: Negative Neurological: Negative Psychological: Negative All Other Systems Reviewed And Are Negative: Yes Physical Exam - Summary Physical Exam Summary: GENERAL: NAD. WDWN. No pain distress. SKIN: No rashes, sores, lesions, or open wounds. NECK: Supple. Nontender. No lymphadenopathy. CHEST: CTAB. No r/r/w. No accessory muscle use. Breathing comfortably and in no distress. CV: RRR. Without m/r/g. Pulses intact. Cap refill <2seconds ABDOMEN: Soft. NTTP. No distention or guarding. No CVA tenderness. Bowel sounds present MSK: FROM b/l UEs with mild reproduction of pain with left shoulder adduction against force. Left anterior chest NTTP. NEURO: Alert. CN II-XII grossly intact. PSYCH: Age appropriate behavior. Triage Information Reviewed: Yes Vital Signs: Vital Signs: Temp Pulse Resp BP Pulse Ox 978.0 F 60 16 132/78 96 11/07/17 18:18 11/07/17 18:18 11/07/17 18:18 11/07/17 18:18 11/07/17 18:18 Vital Signs Reviewed: Yes - Assessment/Plan Course Of Treatment: EKG sinus bradycardia at [address] changes as read by Dr. Marie. Compared to EKG from 08/05/15. CXR obtained, no radiologist reading after 1800 therefore wet read is negative for acute process. I suspect his pain is due to a muscle strain and have advised him to try OTC ibuprofen and apply heat to the area to see if this improves his pain. If he develops any worsening or new symptoms to be further evaluated in the ED. Pt was agreeable to this. - Clinical Impression Provider Diagnoses: Chest pain. Muscle strain Discharge - Sign-Out/Discharge Documenting (check all that apply): Patient Departure All imaging exams completed and their final reports reviewed: No - Discharge Plan Condition: Stable Disposition: HOME Patient Education Materials: Muscle Strain (DC) Referrals: Fadi Blair MD [Primary Care Provider] - Additional Instructions: If you develop a fever, shortness of breath, chest pain, new or worsening symptoms - please call your PCP or go to the ED. Your blood pressure was mildly elevated at todays visit. Please see your primary provider within 4 weeks for recheck and re-evaluation. 1) Please try [id number] ibuprofen 600mg every 6-8hours as needed for pain to see if this improves your pain. 2) If you develop shortness of breath, increasing chest pain, or dizziness - please call 911 or go to the ER. - Billing Disposition and Condition Condition: STABLE Disposition: Home - Attestation Statements Provider Attestation: Per institutional requirements, I have reviewed the chart, however, I was not consulted specifically or made aware of this patient by the midlevel provider. I did not personally evaluate, interact with , or disposition this patient.
[2017-11-07 18:25] VITALS: BP 132/78
--- NOTE | 2017-11-08 07:45 | RAD ---
INDICATION: LEFT anterior upper dull chest pain for 2 weeks. COMPARISON: August 05, 2015 TECHNIQUE: Dual energy PA and routine lateral views of the chest were obtained. REPORT: Lung volumes appear elevated. No focal pulmonary lesion, compelling alveolar consolidation, pleural effusion, pneumothorax. The heart, pulmonary vasculature, and mediastinal contours are unremarkable. Unremarkable soft tissue contours and osseous structures. IMPRESSION: #. Elevated lung volumes may reflect obstructive lung disease or simply exuberant inspiratory effort for examination. #. No evidence for acute intrathoracic disease. R0
== END 2017-11-07 19:10 | disposition home or self-care (01) ==
LOC: UCEAST 18:15
DX: R07.89 Other chest pain (principal); S29.011A Strain of muscle and tendon of front wall of thorax, initial encounter; R03.0 Elevated blood-pressure reading, without diagnosis of hypertension; X50.9XXA Other and unspecified overexertion or strenuous movements or postures, initial encounter; Y92.9 Unspecified place or not applicable
CPT/HCPCS: 71046; 93005; 99211; G0463

== ENCOUNTER 2017-11-09 19:08 | Emergency (ER) | payer OTHER ==
[2017-11-09 19:24] VITALS: BP 141/84
[2017-11-09] MEDS ORDERED: Lidocaine 2% EPI 1:200000 MPF*10-20 ML VIAL ONE (19:31)
--- NOTE | 2017-11-09 19:43 | ED ---
Skin Complaint - HPI Summary HPI Summary: This patient is a 27 year old M presenting to [facility] with a chief complaint of a fishing lure in scalp that began at approximately at 1730. The patient rates the pain 0/10 in severity. Symptoms aggravated by nothing. Symptoms alleviated by nothing. - History of Current Complaint Chief Complaint: EDGeneral Time Seen by Provider: 11/09/17 19:28 Stated Complaint: FISHING HOOK IN BACK OF HEAD Hx Obtained From: Patient Onset/Duration: Started Hours Ago, Still Present Skin Exposure Onset/Duration: Hours Ago Timing: Constant Onset Severity: Mild Current Severity: Mild Pain Intensity: 0 Pain Scale Used: 0-10 Numeric Skin Location: Other: - Back of head Aggravating Symptom(s): Nothing Alleviating Symptom(s): Nothing - Allergy/Home Medications Allergies/Adverse Reactions: Allergies Allergy/AdvReac Type Severity Reaction Status Date / Time No Known Allergies Allergy Verified 11/09/17 19:24 PMH/Surg Hx/FS Hx/Imm Hx Previously Healthy: No Endocrine/Hematology History: Denies: Hx Anticoagulant Therapy, Hx Diabetes, Hx Thyroid Disease Cardiovascular History: Denies: Hx Hypertension Respiratory History: Denies: Hx Asthma, Hx Chronic Obstructive Pulmonary Disease (COPD) GI History: Denies: Hx Ulcer History: Denies: Hx Dialysis Neurological History: Denies: Hx CVA Psychiatric History: Reports: Hx Anxiety - hx of cutting, Hx Substance Abuse - Cancer History Cancer Type, Location and Year: anxiety - Surgical History Surgery Procedure, Year, and Place: right wrist - Immunization History Date of Tetanus Vaccine: 10/09/17 Infectious Disease History: No Infectious Disease History: Denies: Hx Clostridium Difficile, Hx Hepatitis, Hx Human Immunodeficiency Virus (HIV), Hx of Known/Suspected MRSA, Hx Shingles, Hx Tuberculosis, Hx Known/ Suspected VRE, Hx Known/Suspected VRSA, History Other Infectious Disease, Traveled Outside the [place] in Last 30 Days - Family History Known Family History: Positive: Hypertension Negative: Cardiac Disease, Diabetes - Social History Occupation: Employed Full-time Lives: With Family Alcohol Use: Occasionally Hx Substance Use: No Substance Use Type: Reports: None Hx Tobacco Use: No Smoking Status (MU): Never Smoked Tobacco Have You Smoked in the Last Year: No Review of Systems Negative: Fever Positive: Other - Positive fishing lure in scalp All Other Systems Reviewed And Are Negative: Yes Physical Exam - Summary Physical Exam Summary: Appearance: Well-appearing, Well-nourished, lying in bed comfortable Skin: Warm, dry, no obvious rash. Fishing lure one calin stuck in the occipital scalp Eyes: sclera anicteric, no conjunctival pallor ENT: mucous membranes moist Neck: deferred Respiratory: No signs of respiratory distress Cardiovascular: Appears well perfused, pulses are nml Abdomen: deferred Musculoskeletal: Moving all 4 extremities without obvious discomfort Neurological: Awake and alert, mentation is normal, speech is fluent and appropriate Psychiatric: affect is normal, does not appear anxious or depressed Triage Information Reviewed: Yes Vital Signs On Initial Exam: Initial Vitals Temp Pulse Resp BP Pulse Ox 98.6 F 98 16 141/84 97 11/09/17 19:20 11/09/17 19:20 11/09/17 19:20 11/09/17 19:20 11/09/17 19:20 Vital Signs Reviewed: Yes Procedures - Procedure Summary Procedure Summary: Procedure: Removal foreign body skin Narrative: The fishing lure was grasped and the embedded calin was gently advanced through the skin. The calin was then snipped off using needle cutter, after which the hook was easily removed. Diagnostics - Vital Signs Vital Signs Temp Pulse Resp BP Pulse Ox 11/09/17 19:20 98.6 F 98 16 141/84 97 - Laboratory Lab Statement: Any lab studies that have been ordered have been reviewed, and results considered in the medical decision making process. Course/Dx - Diagnoses Provider Diagnoses: Foreign body (FB) in soft tissue Discharge - Sign-Out/Discharge Documenting (check all that apply): Patient Departure - Discharge Plan Condition: Improved Disposition: HOME Patient Education Materials: Soft Tissue Foreign Body (ED) Referrals: Fadi Blair MD [Primary Care Provider] - If Needed Additional Instructions: Shampoo when you get home to clean the area. Infections are fairly rare on the scalp, but if it starts to look very swollen, red or pussy come back so we can take a look. - Billing Disposition and Condition Condition: IMPROVED Disposition: Home - Attestation Statements Document Initiated by Scribe: Yes Documenting Scribe: Gertrude Julian Provider For Whom Scribe is Documenting (Include Credential): Rob Alvarez MD Scribe Attestation: I, Gertrude Julian, scribed for Rob Alvarez MD on 11/09/17 at 1944. Scribe Documentation Reviewed: Yes Provider Attestation: The documentation as recorded by the scribe, Gertrude Julian accurately reflects the service I personally performed and the decisions made by me, Rob Alvarez MD
== END 2017-11-09 20:55 | disposition home or self-care (01) ==
LOC: ED 19:08
DX: S01.04XA Puncture wound with foreign body of scalp, initial encounter (principal); W45.8XXA Other foreign body or object entering through skin, initial encounter; Y93.89 Activity, other specified; Y92.9 Unspecified place or not applicable
CPT/HCPCS: 99281

== ENCOUNTER 2017-11-28 15:55 | Emergency (ER) | payer OTHER ==
--- NOTE | 2017-11-28 16:55 | ED ---
Throat Pain/Nasal Congestion - HPI Summary HPI Summary: Patient is a 27-year-old male who presents emergency department for sore throat that started yesterday. Denies associated symptoms of fever, chills, nausea, vomiting, abdominal pain, cough. Symptoms are mild in severity. Swallowing and eating makes symptoms worse. Nothing makes symptoms better. He has no significant past medical history. 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 - History of Current Complaint Chief Complaint: EDThroatPain Time Seen by Provider: 11/28/17 16:06 Hx Obtained From: Patient - Allergies/Home Medications Allergies/Adverse Reactions: Allergies Allergy/AdvReac Type Severity Reaction Status Date / Time No Known Allergies Allergy Verified 11/09/17 19:24 Home Medications: Home Medications NK [No Home Medications Reported] 11/28/17 [History Confirmed 11/28/17] PMH/Surg Hx/FS Hx/Imm Hx Previously Healthy: Yes Endocrine/Hematology History: Denies: Hx Anticoagulant Therapy, Hx Diabetes, Hx Thyroid Disease Cardiovascular History: Denies: Hx Hypertension Respiratory History: Denies: Hx Asthma, Hx Chronic Obstructive Pulmonary Disease (COPD) GI History: Denies: Hx Ulcer History: Denies: Hx Dialysis Neurological History: Denies: Hx CVA Psychiatric History: Reports: Hx Anxiety - hx of cutting, Hx Substance Abuse - Cancer History Cancer Type, Location and Year: anxiety - Surgical History Surgery Procedure, Year, and Place: right wrist - Immunization History Date of Tetanus Vaccine: 10/09/17 Infectious Disease History: No Infectious Disease History: Denies: Hx Clostridium Difficile, Hx Hepatitis, Hx Human Immunodeficiency Virus (HIV), Hx of Known/Suspected MRSA, Hx Shingles, Hx Tuberculosis, Hx Known/ Suspected VRE, Hx Known/Suspected VRSA, History Other Infectious Disease, Traveled Outside the [place] in Last 30 Days - Family History Known Family History: Positive: Hypertension Negative: Cardiac Disease, Diabetes - Social History Occupation: Employed Full-time Lives: With Family Alcohol Use: Occasionally Hx Substance Use: No Substance Use Type: Reports: None Hx Tobacco Use: No Smoking Status (MU): Never Smoked Tobacco Have You Smoked in the Last Year: No Review of Systems Constitutional: Negative Negative: Fever, Chills Positive: Photophobia Positive: Sore Throat Cardiovascular: Negative Respiratory: Negative Gastrointestinal: Negative Negative: Abdominal Pain, Vomiting, Diarrhea Skin: Negative Neurological: Negative All Other Systems Reviewed And Are Negative: Yes Physical Exam Triage Information Reviewed: Yes Vital Signs On Initial Exam: Initial Vitals Temp Pulse Resp BP Pulse Ox 98.5 F 73 16 148/83 97 11/28/17 15:57 11/28/17 15:57 11/28/17 15:57 11/28/17 15:57 11/28/17 15:57 Vital Signs Reviewed: Yes Appearance: Positive: Well-Appearing - Patient sitting on bed in no acute distress. Skin: Positive: Warm, Dry Head/Face: Positive: Normal Head/Face Inspection Eyes: Positive: Normal, EOMI ENT: Positive: TMs normal, Other - Oropharynx injected with bilateral tonsillar edema without exudates. Uvula is midline without deviation or edema. No muffled voice or pooling of secretions. Neck: Positive: Supple, Nontender, Enlarged Nodes @ - right cervical Respiratory/Lung Sounds: Positive: Clear to Auscultation, Breath Sounds Present Cardiovascular: Positive: Normal, RRR Neurological: Positive: Normal, CN Intact II-III Psychiatric: Positive: Affect/Mood Appropriate Diagnostics - Vital Signs Vital Signs Temp Pulse Resp BP Pulse Ox 11/28/17 15:57 98.5 F 73 16 148/83 97 - Laboratory Lab Statement: Any lab studies that have been ordered have been reviewed, and results considered in the medical decision making process. EENT Course/Dx - Course Course Of Treatment: Pt. presenting for a sore throat. He is afebrile and well appearing. Strep and mono screen negative. Pt. concerned with swelling to the right side of his neck, he was reassured this is reactive lymphadenopathy. Suspect viral etiology. Will treat concervatively. Advised tylenol or motrin for pain as directed. Increase fluids and rest. Warm tea and cough drops. To f.u with the [facility] and return to ER if sxs change or worsen. - Differential Diagnoses Differential Diagnoses: Periodontic Abscess, Pharyngitis, Sinusitis, Tonsilitis - Diagnoses Provider Diagnoses: Acute tonsillitis Discharge - Sign-Out/Discharge Documenting (check all that apply): Patient Departure - Discharge Plan Condition: Good Disposition: HOME Patient Education Materials: Pharyngitis (ED) Forms: *Work Release Referrals: [facility] [Outside] Additional Instructions: Schedule a follow up appointment with your PCP Increase fluids and rest Tylenol or Motrin for pain as directed Return to ER if symptoms change or worsen - Billing Disposition and Condition Condition: GOOD Disposition: Home
[2017-11-28 18:55] VITALS: BP 131/70
== END 2017-11-28 18:51 | disposition home or self-care (01) ==
LOC: ED 15:55
DX: J03.90 Acute tonsillitis, unspecified (principal)
CPT/HCPCS: 36415; 86308; 87651; 99282

== ENCOUNTER 2018-05-05 22:47 | Emergency (ER) | payer OTHER ==
[2018-05-05] MEDS ORDERED: KETAMINE HCL* 50 MG/ML 10 ML VIAL ONE (23:06)
--- NOTE | 2018-05-05 23:10 | ED ---
Substance Abuse/Use - HPI Summary HPI Summary: Pt is a 28 y/o male brought in by police on a 941 who presents to the ED c/o alcohol intoxication. As per police, he was called in for a domestic dispute. Pt has been drinking an unknown amount of alcohol and potentially has other substances in his system. He was smashing his head into the patrol car window in an attempt to harm himself. Pt states he is not a threat to others. He is agitated in the room. PMHx anxiety, self-harm, and substance abuse. Pt is a level 5 caveat due to his intoxication. - History Of Current Complaint Chief Complaint: EDSubstanceAbuse Stated Complaint: 941 Time Seen by Provider: 05/05/18 22:59 Hx Obtained From: Patient, EMS Hx From Patient Unobtainable Due To: Other - Intoxication Ingestion History: Type/Name Of Drug - Alcohol, possible other substances, Amount Ingested - Unknown Character: Angry Aggravating Factor(s): Nothing Alleviating Factor(s): Nothing Associated Signs And Symptoms: Hostile - Allergies/Home Medications Allergies/Adverse Reactions: Allergies Allergy/AdvReac Type Severity Reaction Status Date / Time No Known Allergies Allergy Verified 11/09/17 19:24 PMH/Surg Hx/FS Hx/Imm Hx Endocrine/Hematology History: Denies: Hx Anticoagulant Therapy, Hx Diabetes, Hx Thyroid Disease Cardiovascular History: Denies: Hx Hypertension Respiratory History: Denies: Hx Asthma, Hx Chronic Obstructive Pulmonary Disease (COPD) GI History: Denies: Hx Ulcer History: Denies: Hx Dialysis Neurological History: Denies: Hx CVA Psychiatric History: Reports: Hx Anxiety - hx of cutting, Hx Substance Abuse - Cancer History Cancer Type, Location and Year: anxiety - Surgical History Surgery Procedure, Year, and Place: right wrist - Immunization History Date of Tetanus Vaccine: 10/09/17 Infectious Disease History: Unable to Obtain/Confirm Infectious Disease History: Denies: Hx Clostridium Difficile, Hx Hepatitis, Hx Human Immunodeficiency Virus (HIV), Hx of Known/Suspected MRSA, Hx Shingles, Hx Tuberculosis, Hx Known/ Suspected VRE, Hx Known/Suspected VRSA, History Other Infectious Disease, Traveled Outside the [place] in Last 30 Days - Family History Known Family History: Positive: Hypertension Negative: Cardiac Disease, Diabetes - Social History Alcohol Use: Occasionally Hx Substance Use: No Substance Use Type: Reports: None Substance Use Comment - Amount & Last Used: today Hx Tobacco Use: No Smoking Status (MU): Never Smoked Tobacco Have You Smoked in the Last Year: No Review of Systems Positive: Other - Agitation All Other Systems Reviewed And Are Negative: No Physical Exam - Summary Physical Exam Summary: Appearance: Well appearing, no pain distress Skin: warm, dry, reflects adequate perfusion, erythema on forehead Head/face: normal Eyes: EOMI, KASIA, conjunctiva injected ENT: mucous membranes moist Neck: supple, non-tender Respiratory: CTA, breath sounds present Cardiovascular: RRR, pulses symmetrical Abdomen: non-tender, soft Bowel Sounds: present Musculoskeletal: normal, strength/ROM intact Neuro: normal, sensory motor intact, A&Ox3 Psych: agitated, screaming obscenities, threatening to head-butt people, intoxicated with unknown substance(s) Physical exam is limited by intoxication - LEVEL 5 CAVEAT Triage Information Reviewed: Yes Vital Signs On Initial Exam: Initial Vitals Temp Pulse Resp BP Pulse Ox 99.1 F 95 16 144/85 95 05/05/18 22:50 05/05/18 22:50 05/05/18 22:50 05/05/18 22:50 05/05/18 22:50 Vital Signs Reviewed: Yes Diagnostics - Vital Signs Vital Signs Temp Pulse Resp BP Pulse Ox 05/05/18 22:50 99.1 F 95 16 144/85 95 - Laboratory Lab Statement: Any lab studies that have been ordered have been reviewed, and results considered in the medical decision making process. - CT Brain CT CT Interpretation Completed By: Radiologist Summary of CT Findings: No acute intracranial abnormality. ED physician reviewed radiology report. Re-Evaluation - Re-Evaluation First Eval Re-Evaluation Time: 23:04 Change: Unchanged Comment: Pt is agitated and aggressive so he was given 250 mg Ketamine with soft restraints. Second Eval Re-Evaluation Time: 03:34 Comment: Patient is awake at this time, still intoxicated and with unsteady gait. He states that he wants to leave. Patient was informed he cannot as he is still intoxicated. After discussion, patient is agreeable with staying in ED until sober. Third Eval Re-Evaluation Time: 04:29 Comment: Patient is agitated, uncooperative, yelling, and cursing in ED, stating that he wants to leave. He is still intoxicated. Patient to be sedated, 250 mg ketamine and restrained. Course/Dx - Course Course Of Treatment: Nurse's notes reviewed. Patient presents with intoxication and aggression by police. He admits to alcohol and marijuana tonight. He is yelling obscenities and aggressive with the staff and police. He required restraint both physically and chemically with ketamine. Restraints were then removed quickly. He awakens sometime thereafter and was able to walk to the restroom. He again became aggressive and verbally disruptive. He required a second round of for straight with ketamine once again. He is beginning to arouse at time of shift change when he is signed out to oncoming ER physician. - Diagnoses Differential Diagnosis/HQI/PQRI: Positive: Acute Psychosis, Alcohol Abuse, Drug Abuse Provider Diagnoses: Alcohol intoxication, Cannabis abuse, Agitation - Critical Care Time Critical Care Time: 30-74 min - CCT is EXCLUSIVE of separately billable procedures. Discharge - Sign-Out/Discharge Documenting (check all that apply): Sign-Out Patient Signing out patient TO: Rob Gross Patient Received Moderate/Deep Sedation with Procedure: No - Discharge Plan Condition: Stable Disposition: HOME Patient Education Materials: Alcohol Intoxication (ED) Referrals: Fadi Blair MD [Primary Care Provider] - Additional Instructions: Never drink to excess. Do not use street drugs. Do not drive today. Return if worse, new symptoms or other concerns. Handouts for local resources to help with your drinking were provided. - Billing Disposition and Condition Condition: STABLE Disposition: Home - Attestation Statements Document Initiated by Scribe: Yes Documenting Scribe: Mariely Blue Provider For Whom Valerie is Documenting (Include Credential): Blaine Bernal MD Scribe Attestation: Mariely Mcneill , scribed for Blaine Bernal MD on 05/06/18 at 0715. Scribe Documentation Reviewed: Yes Provider Attestation: The documentation as recorded by the sengibrakesh, Mariely Blue accurately reflects the service I personally performed and the decisions made by me, Blaine Bernal MD Status of Scribe Document: Viewed
[2018-05-05] MEDS: KETAMINE HCL* 50 MG/ML 10 ML VIAL IV ONE (23:22)
[2018-05-06 02:50] LABS: Urine Appearance Clear; Urine Bilirubin Negative (Negative); Urine Blood Negative (Negative); Urine Color Straw; Urine Glucose Negative (Negative); Urine Ketones Negative (Negative); Urine Nitrite Negative (Negative); Urine Protein Negative (Negative); Urine Specific Gravity 1.003 (1.010-1.030); Urine Urobilinogen Negative (Negative)
[2018-05-06 03:01] LABS: Barbiturates Urine Screen None Detected (None Detect); Benzodiazepine Urine Screen None Detected (None Detect); Urine Cannabinoids Screen Presumptive Positive (None Detect)
[2018-05-06] MEDS ORDERED: KETAMINE HCL* 50 MG/ML 10 ML VIAL ONE (04:39)
[2018-05-06] MEDS: KETAMINE HCL* 50 MG/ML 10 ML VIAL IV ONE (04:50)
--- NOTE | 2018-05-06 07:06 | ED ---
Progress - Progress Note Progress Note: The patient was signed out by Dr. Bernal to Dr. Gross, pending sobriety. Re-Evaluation - Re-Evaluation First Eval Re-Evaluation Time: 23:04 Change: Unchanged Comment: Pt is agitated and aggressive so he was given 250 mg Ketamine with soft restraints. Second Eval Re-Evaluation Time: 03:34 Comment: Patient is awake at this time, still intoxicated and with unsteady gait. He states that he wants to leave. Patient was informed he cannot as he is still intoxicated. After discussion, patient is agreeable with staying in ED until sober. Third Eval Re-Evaluation Time: 04:29 Comment: Patient is agitated, uncooperative, yelling, and cursing in ED, stating that he wants to leave. He is still intoxicated. Patient to be sedated, 250 mg ketamine and restrained. Course/Dx - Course Course Of Treatment: Mr. Valenzuela was being discharged at the beginning of my shift at 7 AM. He had come in intoxicated and belligerent and ended up receiving ketamine a couple of times. When I first saw him at 7 AM he was awake and again angry and belligerent. What it boiled down to was that he upset about having been given the medication and where it was making him feel. We kept him and watched him for a couple more hours until he felt a little better and was willing to be discharged. He was up and ambulating about and clearly clinically sober. - Diagnoses Provider Diagnoses: Alcohol intoxication, Cannabis abuse, Agitation - Critical Care Time Critical Care Time: 30-74 min - CCT is EXCLUSIVE of separately billable procedures. Discharge - Sign-Out/Discharge Documenting (check all that apply): Patient Departure - discharge, Receiving Sign-Out Receiving patient FROM: Blaine Bernal Patient Received Moderate/Deep Sedation with Procedure: No - Discharge Plan Condition: Stable Disposition: HOME Patient Education Materials: Alcohol Intoxication (ED) Referrals: Fadi Blair MD [Primary Care Provider] - Additional Instructions: Never drink to excess. Do not use street drugs. Do not drive today. Return if worse, new symptoms or other concerns. Handouts for local resources to help with your drinking were provided. - Billing Disposition and Condition Condition: STABLE Disposition: Home - Attestation Statements Document Initiated by Scribe: Yes Documenting Scribe: Joel Justin Provider For Whom Scribe is Documenting (Include Credential): Rob Gross MD Scribe Attestation: I, Joel Justin, scribed for Rob Gross MD on 05/06/18 at 1833. Scribe Documentation Reviewed: Yes Provider Attestation: The documentation as recorded by the scribe, Joel Justin accurately reflects the service I personally performed and the decisions made by me, Rob Gross MD Status of Scribe Document: Viewed
[2018-05-06 08:55] VITALS: BP 153/84
== END 2018-05-06 08:56 | disposition home or self-care (01) ==
LOC: ED 22:47
DX: F10.129 Alcohol abuse with intoxication, unspecified (principal); F12.10 Cannabis abuse, uncomplicated; R45.1 Restlessness and agitation
CPT/HCPCS: 36415; 70450; 80307; 81003; 96374; 99285

== ENCOUNTER 2018-08-10 23:30 | Emergency (ER) | payer OTHER ==
[~2018-08-10 23:30] MED LIST: Haloperidol INJ IV/IM* 5 MG/ML AMP ONE; diPHENhydraMINE IV* 50 MG/ML 1 ml VIAL (BENADRYL) ONE
[2018-08-10] MEDS ORDERED: LORazepam INJ* 2 MG/ML 1 ML VIAL ONE ×2 (23:38→23:43)
[2018-08-10] MEDS ORDERED: Haloperidol INJ IV/IM* 5 MG/ML AMP ONE (23:43)
[2018-08-10] MEDS ORDERED: diPHENhydraMINE IV* 50 MG/ML 1 ml VIAL (BENADRYL) ONE (23:43)
--- NOTE | 2018-08-10 23:53 | ED ---
Psychiatric Complaint - HPI Summary HPI Summary: The patient is a 28 y/o M presenting to [facility] [place] brought in by police as 941 for violent episodes of aggression against police and hitting his head against the cage of the car tonight. Per police, the patient was brought it for aggressive behaviors. Once he was picked up, he continuously hit his head on the cage in the police car. In the ED, he is loud and verbal towards police and staff. - History Of Current Complaint Chief Complaint: EDMentalHealth Time Seen by Provider: 08/10/18 23:41 Hx Obtained From: Patient, Other: - police Onset/Duration: Lasting Minutes, Still Present Timing: Minutes Severity Initially: Mild Severity Currently: Moderate Character: Manic Aggravating Factor(s): Nothing Alleviating Factor(s): Nothing Associated Signs And Symptoms: Positive: Hostile - Allergies/Home Medications Allergies/Adverse Reactions: Allergies Allergy/AdvReac Type Severity Reaction Status Date / Time No Known Allergies Allergy Verified 11/09/17 19:24 PMH/Surg Hx/FS Hx/Imm Hx Endocrine/Hematology History: Denies: Hx Anticoagulant Therapy, Hx Diabetes, Hx Thyroid Disease Cardiovascular History: Denies: Hx Hypertension Respiratory History: Denies: Hx Asthma, Hx Chronic Obstructive Pulmonary Disease (COPD) GI History: Denies: Hx Ulcer History: Denies: Hx Dialysis Neurological History: Denies: Hx CVA Psychiatric History: Reports: Hx Anxiety - hx of cutting, Hx Substance Abuse - Cancer History Cancer Type, Location and Year: anxiety - Surgical History Surgery Procedure, Year, and Place: right wrist - Immunization History Date of Tetanus Vaccine: 10/09/17 Infectious Disease History: No Infectious Disease History: Denies: Hx Clostridium Difficile, Hx Hepatitis, Hx Human Immunodeficiency Virus (HIV), Hx of Known/Suspected MRSA, Hx Shingles, Hx Tuberculosis, Hx Known/ Suspected VRE, Hx Known/Suspected VRSA, History Other Infectious Disease, Traveled Outside the [place] in Last 30 Days - Family History Known Family History: Positive: Hypertension Negative: Cardiac Disease, Diabetes - Social History Alcohol Use: Occasionally Hx Substance Use: No Substance Use Type: Reports: None Substance Use Comment - Amount & Last Used: today Hx Tobacco Use: No Smoking Status (MU): Never Smoked Tobacco Have You Smoked in the Last Year: No Review of Systems Neurological: Other - head hit on police cage Psychological: Other - violent against others with agitation All Other Systems Reviewed And Are Negative: Yes Physical Exam - Summary Physical Exam Summary: Appearance: Well appearing, no pain distress Skin: warm, dry, reflects adequate perfusion, Abrasion on nose, Right elbow contusion Head/face: normal Eyes: EOMI, KASIA ENT: normal Neck: supple, non-tender Respiratory: CTA, breath sounds present Cardiovascular: RRR, pulses symmetrical Abdomen: non-tender, soft Musculoskeletal: normal, strength/ROM intact Neuro: normal, sensory motor intact, A&Ox3 Triage Information Reviewed: Yes Vital Signs On Initial Exam: Initial Vitals Temp Pulse Resp BP Pulse Ox 98.9 F 89 18 147/96 94 08/10/18 23:31 08/10/18 23:31 08/10/18 23:31 08/10/18 23:31 08/10/18 23:31 Vital Signs Reviewed: Yes Diagnostics - Vital Signs Vital Signs Temp Pulse Resp BP Pulse Ox 08/10/18 23:31 98.9 F 89 18 147/96 94 - Laboratory Result Diagrams: 08/11/18 00:52 08/11/18 00:52 Lab Statement: Any lab studies that have been ordered have been reviewed, and results considered in the medical decision making process. Re-Evaluation - Re-Evaluation First Eval Re-Evaluation Time: 06:30 Comment: The patient refuses brain CT Course/Dx - Course Assessment/Plan: The patient is a 28 y/o M presenting to [facility] brought in by police as 941 for violent episodes of aggression against police and hitting his head against the cage of the car tonight. Upon physical exam, the patient exhibits abrasions on the nose and contusion on the right elbow. In the ED course, the patient was administered Ativan. He did not want Ketamine administered because he doesnt like the way it makes him feel. Restraints were placed at 2345 by security and staff. They were removed. Blood work, UA, and toxicology reports obtained. He is diagnosed with depression and substance abuse. The patient is a sign-out to Dr. Rosales Albrecht MD, from Dr. Peter Joy MD at change of shift at 0700 pending MHE and disposition. - Differential Dx/Clinical Impression Provider Diagnosis: Depression, Substance abuse Discharge - Sign-Out/Discharge Documenting (check all that apply): Sign-Out Patient Signing out patient TO: Rosales Albrecht - Patient is a sign out to Dr. Albrecht at change of shift pending MHE and disposition. Patient Received Moderate/Deep Sedation with Procedure: Yes - Discharge Plan Condition: Stable Patient Education Materials: Moderate Sedation (ED) Referrals: Fadi Blair MD [Primary Care Provider] - - Billing Disposition and Condition Condition: STABLE - Attestation Statements Document Initiated by Scribe: Yes Documenting Scribe: Oma Stallworth Provider For Whom Valerie is Documenting (Include Credential): Dr. Peter Joy MD Scribe Attestation: Oma Mcneill scribed for Dr. Peter Joy MD on 08/11/18 at 0651. Scribe Documentation Reviewed: Yes Provider Attestation: The documentation as recorded by the Oma armendariz accurately reflects the service I personally performed and the decisions made by me, Dr. Peter Joy MD Status of Scribe Document: Viewed
[2018-08-11 00:59] LABS: ABS Lymphocytes 1.8 10^3/ul (1.0-4.8); ABS Monocytes 0.5 10^3/ul (0-0.8); ABS Neutrophils 3.3 10^3/ul (1.5-7.7); Eosinophil % 0.5 %; Hematocrit 47 % (42-52); Hemoglobin 16.4 g/dL (14.0-18.0); Lymphocyte % 31.8 %; Mean Corpuscular HGB Conc 35 g/dL (31-36); Mean Corpuscular Hemoglobin 31 pg (27-31); Mean Corpuscular Volume 89 fL (80-94); Mean Platelet Volume 9.6 fL (7.4-10.4); Nucleated Red Blood Cells % 0.1; Platelet Count 169 10^3/uL (150-450); Red Blood Count 5.34 10^6 /uL (4.18-5.48); Red Cell Distribution Width 14 % (10.5-15); White Blood Count 5.7 10^3/uL (3.5-10.8)
[2018-08-11 01:15] LABS: ALT 15 U/L (7-52); AST 19 U/L (13-39); Albumin 4.4 g/dL (3.2-5.2); Albumin/Globulin Ratio 1.5 (1-3); Alkaline Phosphatase 60 U/L (34-104); Anion Gap 10 mmol/L (2-11); BUN/Creatinine Ratio 11.8 (8-20); Blood Urea Nitrogen 12 mg/dL (6-24); CO2 Carbon Dioxide 22 mmol/L (22-32); Calcium 8.9 mg/dL (8.6-10.3); Chloride 107 mmol/L (101-111); EGFR Non-African American 87.6 (>60); Globulin 2.9 g/dL (2-4); Glucose 85 mg/dL (70-100); Potassium 3.5 mmol/L (3.5-5.0); Sodium 139 mmol/L (135-145); Total Protein 7.3 g/dL (6.4-8.9)
[2018-08-11 01:37] LABS: Acetaminophen < 15 mcg/mL; Alcohol 232 mg/dL (<10); Salicylate < 2.50 mg/dL (<30)
[2018-08-11 01:52] LABS: TSH (Thyroid Stimulating Horm) 2.12 mcIU/mL (0.34-5.60)
[2018-08-11] MEDS ORDERED: LORazepam INJ* 2 MG/ML 1 ML VIAL ONE (07:14)
[2018-08-11 07:35] VITALS: BP 136/94
[2018-08-11] MEDS ORDERED: diPHENhydraMINE IV* 50 MG/ML 1 ml VIAL (BENADRYL) ONE (07:40)
[2018-08-11] MEDS ORDERED: Haloperidol INJ IV/IM* 5 MG/ML AMP ONE (07:40)
--- NOTE | 2018-08-11 07:41 | ED ---
Progress - Progress Note Progress Note: This pt was signed out by Dr. Joy, pending disposition, awaiting mental health evaluation. Pt had a mental health evaluation and his case was reviewed by Dr. Nova, psychiatrist. Dr. Nova has cleared the pt for discharge. Pt will be discharged home with dx of substance abuse disorder. Course/Dx - Diagnoses Provider Diagnoses: Substance abuse Discharge - Sign-Out/Discharge Documenting (check all that apply): Patient Departure - Discharge home, Receiving Sign-Out Receiving patient FROM: Peter Joy Patient Received Moderate/Deep Sedation with Procedure: No - Discharge Plan Condition: Stable Disposition: HOME Patient Education Materials: Moderate Sedation (ED) Referrals: Fadi Blair MD [Primary Care Provider] - - Attestation Statements Document Initiated by Scribe: Yes Documenting Scribe: Marcia Lemons Provider For Whom Scribe is Documenting (Include Credential): Rosales Albrecht MD Scribe Attestation: Marcia Mcneill, scribed for Rosales Albrecht MD on 08/11/18 at 0742. Status of Scribe Document: Ready
== END 2018-08-11 08:04 | disposition home or self-care (01) ==
LOC: ED 23:30
DX: F32.9 Major depressive disorder, single episode, unspecified (principal); F19.10 Other psychoactive substance abuse, uncomplicated; S00.31XA Abrasion of nose, initial encounter; S50.01XA Contusion of right elbow, initial encounter; X58.XXXA Exposure to other specified factors, initial encounter; Y92.9 Unspecified place or not applicable
CPT/HCPCS: 36415; 80053; 80320; 80329; 84443; 85025; 99285; G0480; J1200; J1630; J2060